=== PATIENT | female | born 1940 | race Caucasian/White ===

== ENCOUNTER 2023-12-13 10:24 | Emergency (ER) | payer MEDICARE, SELFPAY ==
[2023-12-13 10:29] VITALS: BP 176/105
[2023-12-13 10:55] VITALS: BP 185/95
[2023-12-13 11:00] VITALS: BP 178/81
[2023-12-13 11:08] LABS: % Basophils 0.5 % (0-2); % Eosinophils 0.8 % (0-6); % Immature Granulocytes 0.3 % (0-0.5); % Lymphocytes 19.2 % (20.5-51.1); % Monocytes 7.6 % (1.7-9.3); % Neutrophils 71.6 % (42.2-75.2); Absolute Eosinophils 0.1 10^3/uL (0-0.7); Absolute Lymphocytes 1.4 10^3/uL (1.2-3.4); Absolute Monocytes 0.6 10^3/uL (0.1-0.6); Absolute Neutrophils 5.4 10^3/uL (1.4-6.5); Hematocrit 41.2 % (37.0-47.0); Hemoglobin 13.9 g/dL (12.0-16.0); Mean Corp Hgb Conc. 33.7 g/dL (33.0-37.0); Mean Corpuscular Hgb 32.6 pg (27.0-31.0); Mean Corpuscular Volume 96.7 fL (81.0-99.0); Mean Platelet Volume 11.8 fL (7.4-10.4); Nucleated Red Blood Cells % 0 %; Platelet Count 195 10^3/uL (130-400); Red Blood Cell Count 4.26 10^6/uL (4.20-5.40); Red Cell Dist. Width 11.9 % (11.5-14.5); White Blood Cell Count 7.5 10^3/uL (4.8-10.8)
[2023-12-13 11:33] LABS: ALT (SGPT) 19 U/L (0-35); AST (SGOT) 33 U/L (14-36); Albumin 4.5 g/dl (3.5-5.0); Alkaline Phosphatase 56 U/L (38-126); Blood Urea Nitrogen 24 mg/dl (7-17); Calcium 10.1 mg/dl (8.4-10.2); Carbon Dioxide 26 mmol/L (22-30); Chloride 103 mmol/L (98-107); Glucose 110 mg/dl (70-99); Potassium 4.2 mmol/L (3.5-5.1); Sodium 138 mmol/L (135-145); Total Bilirubin 0.6 mg/dl (0.2-1.3); Total Protein 7.1 g/dl (6.3-8.2); eGFR > 60.00
[2023-12-13 11:48] LABS: Urine Albumin Negative (Neg - Trace); Urine Bilirubin Negative (Negative); Urine Character Clear (Clear); Urine Color Yellow; Urine Glucose Negative (Negative); Urine Ketone Negative (Negative); Urine Leukocyte 2+ (Negative); Urine Nitrite Negative (Negative); Urine Occult Blood 1+ (Negative); Urine Urobilinogen Negative (Neg - 1+)
--- NOTE | 2023-12-13 11:53 | ED.GENMED ---
History of Present Illness
General
Chief Complaint: Weakness
Source: patient
Exam Limitations: none
Time Seen by Provider: 12/13/23 10:47
Nursing documentation reviewed up to this point in time: agreed with
Travel History
Have you had any contact with someone who has COVID-19?: No
Do you have any symptoms of coronavirus? Fever > 100 degrees, chills, cough, shortness of breath, sore throat, loss of taste or smell, muscle aches, or headache?: No
History of Present Illness
History of Present Illness:
83-year-old female past with history of hypertension presenting to the emergency department today with concerns of weakness fatigue over the past 2 days claims that she has had a lot of stress in her personal life recently but typically does not
have significant fatigue like this regularly. Denies any specific chest pain nausea vomiting recent illness or fevers. She typically is very active at baseline
Past History
Past History
ED Past Medical History: HTN, Hypothyroidism and Other (Previous urosepsis,)
ED Past Surgical History: , Gynecological (Hysterectomy) and Other (hernioraphy)
Social History
Tobacco: Non-smoker
Alcohol: Occasional
Drug: None
Personal:
Living: with family
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
Family History
Family History: Hypertension
Review of Systems
Review of Systems
Allergies reviewed?: Yes
All Other Systems: ROS reviewed and negative except as documented in HPI and ROS
Phy Exam
Physical Exam
Physical Exam:
GENERAL: Alert , in no apparent distress
EYE: pupils equal and reactive
NECK: Supple, no significant adenopathy.
ENT: o/p clr, mmm.
CARDIAC: Regular rate and rhythm .
LUNGS: Clear breath sounds bilaterally, no acute respiratory distress, no wheezes/rales/rhonchi
ABDOMEN: Soft, without focal tenderness, no r/g, no cvat
NEUROLOGICAL: Alert and oriented, no focal neuro deficits
SKIN: Warm and dry, skin intact.
MUSCULOSKELETAL: No edema, well perfused.
PSYCH: Normal and appropriate interaction.
Course
Orders/Labs/Results
Orders:
Orders
12/13/23 10:51
EKG [Electrocardiogram (*1)] Urgent
Reason for Study: Fatigue / Weakness
EKG- Treatment ONCE
12/13/23 11:02
Complete Blood Count/With Diff Urgent
Comprehensive Metabolic Panel Urgent
TSH Reflex To Free T4 Urgent
12/13/23 11:30
Urinalysis Reflex To Culture Urgent
Date Specimen was Collected: 12/13/23
Time Specimen was Collected: 11:28
Urine Microscopic Reflex Cult Urgent
Urine Culture Urgent
AIDEE Source: U
Specimen Description:
Date Specimen was Collected: 12/13/23
Time Specimen was Collected: 11:28
12/13/23 11:55
0.9% Sodium Chloride 500 ml [Nss] 500 ml IV BOLUS
12/13/23 12:17
Cephalexin Monohydrate [Keflex] 500 mg PO NOW STA
Abnormal Lab Results
12/13/23 12/13/23
11:02 11:30
MCH 32.6 H pg
(27.0-31.0)
MPV 11.8 H fL
(7.4-10.4)
Lymphocytes % 19.2 L %
(20.5-51.1)
BUN 24 H mg/dl
(7-17)
Glucose 110 H mg/dl
(70-99)
Ur Occult Blood Reflex 1+ A
(Negative)
Leukocyte Esterase Rfl 2+ A
(Negative)
Urine RBC 3-6 A /HPF
(0-2)
Urine WBC (Reflex) 30-40 A /HPF
(0-5)
Urine Bacteria (Reflex) Few A
(Negative)
12/13/23 11:02
12/13/23 11:02
Vital Signs
Initial and Last Documented VS:
Initial Vital Signs
Temp Pulse Resp BP Pulse Ox
98.5 F 72 16 176/105 98
12/13/23 10:29 12/13/23 10:29 12/13/23 10:29 12/13/23 10:29 12/13/23 10:29
Last Documented Vital Signs
Temp Pulse Resp BP Pulse Ox
98.5 F 58 17 178/81 100
12/13/23 10:29 12/13/23 11:00 12/13/23 11:00 12/13/23 11:00 12/13/23 11:00
MDM/Problems Addressed
MDM/Problems Addressed:
83-year-old female presenting to the emergency department today with concerns of fatigue lightheadedness when standing over the past 24 hours or so. Claims that she has had a lot of stress recently. On arrival here vital signs are normal normal
neurologic evaluation no emergent findings on physical exam. Labs showing elevated BUN to creatinine ratio patient was given fluids that she may be somewhat dehydrated. Otherwise her urinalysis potentially consistent with UTI. She claims that her
urine has been cloudy recently. Patient was started on Keflex and culture sent. Otherwise doing well here no emergent findings patient stable for outpatient management of likely mild dehydration and cystitis. Return precautions given.
*Critical Care Note
Total Time (30-74mins, 75-104mins- exclusive of procedures): Not Applicable
ED Attending Note
-
Portions of this chart may have been created with voice recognition software.� Occasional wrong word or��sound alike� substitutions may have occurred due to the inherent limitations of voice recognition software.
Discharge Plan
Departure
Patient Disposition: Home (Routine Discharge)
Date of Disposition: 12/13/23
Time of Disposition: 12:45
Patient with high blood pressure during this ER visit?: Yes
Condition: Good
Covid-19: Not Applicable
Discharge Problem:
Acute UTI, Mild dehydration
Instructions: Urinary Tract Infection, Adult ED, BLOOD PRESSURE
Prescriptions:
New
cephalexin 500 mg capsule
500 mg PO BID 7 Days Qty: 14 0RF
No Action
hydrochlorothiazide 12.5 MG capsule
12.5 mg PO DAILY
ramipril 10 MG capsule
20 mg PO DAILY
Vitamin D
1 tab PO DAILY
levothyroxine [Levoxyl] 50 MCG tablet
50 mcg PO DAILY
prednisone 20 mg tablet
20 mg PO DAILY Qty: 5 0RF
epinephrine [EpiPen] 0.3 mg/0.3 mL auto-injector
0.3 mg IM .STAT PRN (Reason: anaphylaxis) Qty: 1 0RF
Referrals:
Josh Gutierrez MD [Family Provider] -
Activity Restrictions/Additional Instructions:
You came to the emergency department today with concerns of weakness and fatigue over the last 2 days. Here you are found to be somewhat dehydrated and were given fluids. Additionally you may have a UTI and you were started on Keflex. Please take
this medication twice daily for the next 7 days. Please have close with the primary care doctor. Return to the emergency department for any worsening, new or concerning symptoms. Additionally you had a somewhat elevated blood pressure here today.
Please keep an eye on this and follow-up closely with the primary care if your blood pressure is remaining elevated.
Interventions
Interventions:
*ED COVID-19 Vaccine History Last Done: 12/13/23 10:26
Discharge Date and Time
Print Language: MALTESE
[2023-12-13 11:57] LABS: Urine Bacteria Few (Negative); Urine White Cell 30-40 /HPF (0-5)
[2023-12-13 12:02] LABS: TSH Reflex To Free T4 1.31 uIU/ml (0.47-4.68)
[2023-12-13] MEDS: KEFLEX 500 MG PO (12:38)
[2023-12-13] MEDS: NSS 500 IV (12:38)
== END 2023-12-13 13:57 | disposition home or self-care (01) ==
LOC: EMR 10:24
PROVIDERS: Physician Assistant; EMERGENCY PHYSICIAN Emergency Medicine; FAMILY PHYSICIAN Family Medicine
DX: N39.0 Urinary tract infection, site not specified (principal); E86.0 Dehydration; I10 Essential (primary) hypertension; E03.9 Hypothyroidism, unspecified; Z82.49 Family history of ischemic heart disease and other diseases of the circulatory system; Z90.710 Acquired absence of both cervix and uterus
CPT/HCPCS: 99283; 96360; 80053; 81003; 81015; 84443; 85025; 87086; 93005

== ENCOUNTER 2024-07-30 18:17 | Inpatient (IN) | payer MEDICARE, SELFPAY ==
[2024-07-30] VITALS (28 sets, daily range): BP systolic 85–141; BP diastolic 51–95; BMI 18.3; BMI 19.8
[2024-07-30 14:03] LABS: % Basophils 0.4 % (0-2); % Eosinophils 1.2 % (0-6); % Immature Granulocytes 0.1 % (0-0.5); % Lymphocytes 34.4 % (20.5-51.1); % Neutrophils 55.9 % (42.2-75.2); Absolute Eosinophils 0.1 10^3/uL (0-0.7); Absolute Lymphocytes 2.6 10^3/uL (1.2-3.4); Absolute Monocytes 0.6 10^3/uL (0.1-0.6); Absolute Neutrophils 4.3 10^3/uL (1.4-6.5); Hematocrit 40.5 % (37.0-47.0); Hemoglobin 13.9 g/dL (12.0-16.0); Mean Corp Hgb Conc. 34.3 g/dL (33.0-37.0); Mean Corpuscular Hgb 32.3 pg (27.0-31.0); Mean Platelet Volume 11.1 fL (7.4-10.4); Nucleated Red Blood Cells % 0 %; Platelet Count 235 10^3/uL (130-400); Red Blood Cell Count 4.31 10^6/uL (4.20-5.40); Red Cell Dist. Width 11.7 % (11.5-14.5); White Blood Cell Count 7.6 10^3/uL (4.8-10.8)
[2024-07-30 14:14] LABS: ALT (SGPT) 14 U/L (0-35); AST (SGOT) 26 U/L (14-36); Albumin 4.3 g/dl (3.5-5.0); Alkaline Phosphatase 59 U/L (38-126); Blood Urea Nitrogen 35 mg/dl (7-17); Calcium 9.6 mg/dl (8.4-10.2); Carbon Dioxide 29 mmol/L (22-30); Chloride 101 mmol/L (98-107); Glucose 172 mg/dl (70-99); Potassium 4.4 mmol/L (3.5-5.1); Sodium 139 mmol/L (135-145); Total Bilirubin 0.3 mg/dl (0.2-1.3); Total Protein 7.1 g/dl (6.3-8.2); eGFR 49.86
--- NOTE | 2024-07-30 14:54 | EDRN ---
currently still awaiting for a provider to see the pt
[2024-07-30 15:34] LABS: Magnesium 1.6 mg/dl (1.6-2.3)
--- NOTE | 2024-07-30 17:19 | ED.GENMED ---
History of Present Illness
<Lila Swartz DO - Last Filed: 07/30/24 17:24>
General
Chief Complaint: Heart Rate Problem
Time Seen by Provider: 07/30/24 15:21
<Tonio Ortega PA-C - Last Filed: 07/30/24 18:01>
History of Present Illness
History of Present Illness:
Patient is an 84-year-old female with past medical history of hypertension and hypothyroidism here today for evaluation of sudden onset of an irregular heart rhythm and palpitations that began at approximately 1 PM today while at home. Patient was
not exerting herself at the time of symptom onset. She feels she is currently in atrial fibrillation. 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 She notes no chest pain or difficulty breathing. No dizziness. No syncope.
Past History
<DO Raven Aguilar Last Filed: 07/30/24 17:24>
Past History
ED Past Medical History: HTN, Hypothyroidism and Other (Previous urosepsis,)
ED Past Surgical History: , Gynecological (Hysterectomy) and Other (hernioraphy)
Social History
Tobacco: Non-smoker
Alcohol: Occasional
Drug: None
Personal:
Living: with family
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
Family History
Family History: Hypertension
Review of Systems
<Tonio Ortega PA-C - Last Filed: 07/30/24 18:01>
Review of Systems
All Other Systems: ROS reviewed and negative except as documented in HPI and ROS
Phy Exam
<BRANDON Cheng Last Filed: 07/30/24 18:01>
Physical Exam
Physical Exam:
GENERAL: Alert , in no apparent distress
EYE: pupils equal and reactive
NECK: Supple, no significant adenopathy.
ENT: o/p clr, mmm.
CARDIAC: Tachycardic rate and irregular rhythm
LUNGS: Clear breath sounds bilaterally, no acute respiratory distress, no wheezes/rales/rhonchi
NEUROLOGICAL: Alert and oriented, no focal neuro deficits
SKIN: Warm and dry, skin intact.
MUSCULOSKELETAL: No edema, well perfused.
PSYCH: Normal and appropriate interaction.
Course
<Lila Swartz, DO - Last Filed: 07/30/24 17:24>
Orders/Labs/Results
Orders:
Orders
07/30/24 13:42
Electrocardiogram (*1) Urgent
Reason for Study: Chest Pain
EKG- Treatment ONCE
07/30/24 13:53
Complete Blood Count/With Diff Urgent
Comprehensive Metabolic Panel Urgent
Magnesium Urgent
Comment: ADD ON
07/30/24 14:16
Add On- LAB Urgent
Tests Added?: Magnesium
07/30/24 16:56
Propofol [Diprivan] 20 ml .ROUTE .STK-MED
07/30/24 17:14
EKG [Electrocardiogram (*1)] Urgent
Reason for Study: Other
Other Reason for Exam: post cardioversion
EKG- Treatment ONCE
07/30/24 17:34
Apixaban [Eliquis] 2.5 mg PO BID ONE
07/30/24 17:45
Diltiazem 125 mg/125 ml Nss [Cardizem] 125 mg in 125 ml IV PER PROTOCOL
Continuous dose without titration in mg/hr:: 5
Additional Titration Instructions:: Do not titrate. Rate change by provider order only.
Abnormal Lab Results
07/30/24
13:53
MCH 32.3 H pg
(27.0-31.0)
MPV 11.1 H fL
(7.4-10.4)
BUN 35 H mg/dl
(7-17)
Creatinine 1.1 H mg/dL
(0.6-1.0)
Glucose 172 H mg/dl
(70-99)
07/30/24 13:53
07/30/24 13:53
Vital Signs
Initial and Last Documented VS:
Initial Vital Signs
Temp Pulse Resp BP Pulse Ox
97.6 F 97 18 133/95 98
07/30/24 13:47 07/30/24 13:47 07/30/24 13:47 07/30/24 13:47 07/30/24 13:47
Last Documented Vital Signs
Temp Pulse Resp BP Pulse Ox
97.6 F 94 20 122/77 100
07/30/24 17:20 07/30/24 17:45 07/30/24 17:45 07/30/24 17:45 07/30/24 17:45
<Tonio Ortega PA-C - Last Filed: 07/30/24 18:01>
Orders/Labs/Results
Orders:
Orders
07/30/24 13:42
Electrocardiogram (*1) Urgent
Reason for Study: Chest Pain
EKG- Treatment ONCE
07/30/24 13:53
Complete Blood Count/With Diff Urgent
Comprehensive Metabolic Panel Urgent
Magnesium Urgent
Comment: ADD ON
07/30/24 14:16
Add On- LAB Urgent
Tests Added?: Magnesium
07/30/24 16:56
Propofol [Diprivan] 20 ml .ROUTE .STK-MED
07/30/24 17:14
EKG [Electrocardiogram (*1)] Urgent
Reason for Study: Other
Other Reason for Exam: post cardioversion
EKG- Treatment ONCE
07/30/24 17:34
Apixaban [Eliquis] 2.5 mg PO BID ONE
07/30/24 17:45
Diltiazem 125 mg/125 ml Nss [Cardizem] 125 mg in 125 ml IV PER PROTOCOL
Continuous dose without titration in mg/hr:: 5
Additional Titration Instructions:: Do not titrate. Rate change by provider order only.
Abnormal Lab Results
07/30/24
13:53
MCH 32.3 H pg
(27.0-31.0)
MPV 11.1 H fL
(7.4-10.4)
BUN 35 H mg/dl
(7-17)
Creatinine 1.1 H mg/dL
(0.6-1.0)
Glucose 172 H mg/dl
(70-99)
07/30/24 13:53
07/30/24 13:53
Vital Signs
Initial and Last Documented VS:
Initial Vital Signs
Temp Pulse Resp BP Pulse Ox
97.6 F 97 18 133/95 98
07/30/24 13:47 07/30/24 13:47 07/30/24 13:47 07/30/24 13:47 07/30/24 13:47
Last Documented Vital Signs
Temp Pulse Resp BP Pulse Ox
97.6 F 94 20 122/77 100
07/30/24 17:20 07/30/24 17:45 07/30/24 17:45 07/30/24 17:45 07/30/24 17:45
Procedures
<Lila Swartz DO - Last Filed: 07/30/24 17:24>
Cardioversion
Indication:: Afib
Performed by:: Lila Swartz DO
Synchronized?: Yes
Energy Used: 200 joules
Number of attempts: x 3 (2x at 200, 1 x at 250
Successful?: No
ASA Risk Score: Class II
Any reaction or bad outcome to prior sedation/anesthesia?: No history of a reaction
Sedation level to be attained: moderate
Chart and allergies reviewed: Yes
Patient reassessed prior to sedation: Yes
Time out completed at (validating right patient & procedure): 15:05
History of difficult intubation: No
Airway free of obstruction: Yes
Patient has a gag reflex: Yes
Patient is able to open mouth: Yes
Patient has no dentures: Yes
Patient has no loose teeth: Yes
Medication administered by Provider during Moderate Sedation: IV Propofol (mg)
Total dose administered: 60
Time drug administered: 15:07
Start Time: 15:07
Stop Time: 15:20
<Tonio Ortega PA-C - Last Filed: 07/30/24 18:01>
MDM/Problems Addressed
Differential Diagnosis Includes:
Patient is an 84-year-old female with past medical history of hypertension and hypothyroidism here today for evaluation of sudden onset of an irregular heart rhythm and palpitations that began at approximately 1 PM today while at home. Patient
well-appearing. Vitals remarkable for an elevated heart rate. EKG was obtained which reveals evidence of atrial fibrillation with rapid ventricular response. Discussed treatment options with patient. Patient refusing Cardizem. She is requesting
cardioversion. Case was discussed with cardiology attending, Dr. Lopes, who is in agreement with cardioversion. Given patient's stroke risk he also recommends Eliquis and metoprolol. An attempt was made at cardioversion x 3 which was
unsuccessful. Case was rediscussed with cardiology who recommends diltizaem drip and admission. Cardiology will evaluate patient tomorrow morning. Case was discussed with hospitalist attending, Madhu Shields, who accepts patient for
admission at this time.
<Lila Swartz DO - Last Filed: 07/30/24 17:24>
*Critical Care Note
Total Time (30-74mins, 75-104mins- exclusive of procedures): 36
comment:
The high probability of a clinically significant, sudden or life threatening deterioration of the cardiovascular (A-fib with RVR) system(s) required my full and direct attention, intervention and personal management. The aggregate critical care time
was 36 minutes. This time is in addition to time spent performing reported procedures but includes the following:
[x] Data Review and interpretation
[x] Patient assessment and monitoring of vital signs
[x] Documentation
[x] Medication orders and management
ED Attending Note
<Lila Swartz, DO - Last Filed: 07/30/24 17:24>
ED Attending Note
Patient seen and examined by attending physician: Yes
I performed the substantive portion of visit, reviewed & personally made and approve the management plan that is documented in note by myself or TIERRA.: Yes
I performed a history and physical exam of patient and discussed management with resident, I reviewed resident's note and agree with documented findings and plan of care.: Yes
ED Attending Note:
Patient seen and evaluated at bedside, 84-year-old female presenting for new onset atrial fibrillation. 1 hour prior to arrival patient felt herself going to the rhythm, palpitations. Denies any history of A-fib in the past, does note some family
history. Denies any chest pain. [place] fine yesterday, and is sure that the abnormal sensation occurred an hour prior to arrival. Denies any fever or recent illness. Vital signs are normal.
EKG obtained on arrival, confirms new onset atrial fibrillation. Patient seen and evaluated bedside, no acute distress or discomfort with unremarkable cardiac and pulmonary exam with the exception of irregularly irregular rhythm, tachycardia. TIERRA
had discussed patient's case with cardiology, agree with cardioversion, which patient is preferring. Patient declined IV rate controlling medications. Patient is a candidate for cardioversion given acute onset of symptoms. Patient consented and
cardioversion completed, unsuccessful x 3. This reason we will start patient on diltiazem drip and admit for A-fib with RVR, new onset. Will also administer Eliquis
-
Portions of this chart may have been created with voice recognition software.� Occasional wrong word or��sound alike� substitutions may have occurred due to the inherent limitations of voice recognition software.
Discharge Plan
Departure
Patient Disposition: Admit
Date of Disposition: 07/30/24
Time of Disposition: 18:00
Admit to: Telemetry
Admit to doctor: Madhu Johnston
Presentation/result/management discussed w/ accepting MD/DO: Hospitalist
Patient with high blood pressure during this ER visit?: No
Condition: Fair
Covid-19: Not Applicable
Discharge Problem:
Atrial fibrillation with rapid ventricular response, Atrial fibrillation status post cardioversion
Prescriptions:
No Action
hydrochlorothiazide 12.5 MG capsule
12.5 mg PO DAILY
ramipril 10 MG capsule
20 mg PO DAILY
Vitamin D
1 tab PO DAILY
levothyroxine [Levoxyl] 50 MCG tablet
50 mcg PO DAILY
epinephrine [EpiPen] 0.3 mg/0.3 mL auto-injector
0.3 mg IM .STAT PRN (Reason: anaphylaxis) Qty: 1 0RF
Referrals:
Josh Gutierrez MD [Family Provider] -
Interventions
Interventions:
*Risk Screen - Suicide Last Done: 07/30/24 13:47
*General Assessment Last Done: 07/30/24 13:47
*Neglect/Abuse Screening Last Done: 07/30/24 13:47
ED- Fall Risk Assessment Last Done: 07/30/24 14:13
*ED COVID-19 Vaccine History Last Done: 07/30/24 14:13
ED- Cardiac Assessment Last Done: 07/30/24 14:13
ED- Pulmonary Assessment Last Done: 07/30/24 14:13
Discharge Date and Time
Print Language: AMHARIC
[2024-07-30] MEDS: ELIQUIS 2.5 MG PO (17:44)
[2024-07-30] MEDS: CARDIZEM 125 IV (17:45)
--- NOTE | 2024-07-30 17:49 | EDRN ---
cardizem gtt initiated at 5mg/hour
--- NOTE | 2024-07-30 18:02 | EDRN ---
the pts HR is in the 80's with cardizem gtt at 5mg/hour
--- NOTE | 2024-07-30 18:12 | HPS.HSE ---
Family Physician
-
Family Physician: Josh Gutierrez
Chief Complaint
-
Feeling unwell
History of Present Illness
Patient is 83-year-old female with past medical history hypothyroidism, essential hypertension came to ER after patient started feeling unwell. 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
in A-fib. In ER this was confirmed on EKG. Patient was having rapid ventricular rate and ER physician attempted cardioversion x 3 which was unsuccessful. Patient was placed on Cardizem drip and cardiology was consulted for further help.
During my visit patient heart rate is controlled in ED 200 range. Patient denies of any ongoing chest pain/shortness of breath/dizziness/palpitation.
Patient denies of having previous history of any cardiac issues heart failure or CAD.
Medical History
Past Medical History
Past Medical History: Reports HTN and Hypercholesterolemia
Past Surgical History: Reports None
Social History
Tobacco: Other (5 yr smoking - remote h/o)
Alcohol: None
Drug: None
Living: With Family
Family History
Family History: Not pertinent
Allergies / Home Medications
Allergies reflects when Allergies were last updated in [facility].
Home Medications with original date entered in [facility]
Allergy/Medication List:
Allergies
Allergy/AdvReac Type Severity Reaction Status Date / Time
NSAIDS (Non-Steroidal Allergy Severe Swelling Verified 07/30/24 13:46
Anti-Inflamma
Sulfa (Sulfonamide Allergy Rash Verified 07/30/24 13:46
Antibiotics)
Home Medications
Vitamin D 1 tab PO DAILY 06/04/17
hydrochlorothiazide 12.5 mg capsule 12.5 mg PO DAILY 06/04/17
levothyroxine 50 mcg tablet (Levoxyl) 50 mcg PO DAILY 06/04/17
ramipril 10 mg capsule 20 mg PO DAILY 06/04/17
epinephrine 0.3 mg/0.3 mL injection, auto-injector (EpiPen) 0.3 mg (0.3 mL) IM .STAT PRN anaphylaxis #1 ea 03/31/23
Review of Systems
-
A 12 point ROS was completed and negative except as noted: Yes
Physical Exam
Vital Signs
Vital Signs
Temp Pulse Resp BP Pulse Ox
97.6 F 96 12 139/68 95
07/30/24 17:20 07/30/24 18:00 07/30/24 18:00 07/30/24 18:00 07/30/24 18:00
Physical Exam
General: Well Developed, Well Nourished and No Apparent Distress
HEENT: NormoCephalic, Moist mucous membranes and Atraumatic
Respiratory: Clear
Cardiac: S1/S2 and Irregular Rhythm; No Murmur or Rub
GI: Soft, Non Tender, Non Distended and Normal Bowel Sounds; No Organomegaly
Rectal: Deferred by Provider
Musculoskeletal: No Clubbing, No Cyanosis and No Edema
Skin: No Rash
Neuro: Nonfocal/grossly intact
Laboratory Results
-
07/30/24 13:53
07/30/24 13:53
Laboratory Results
Total Bilirubin 0.3 mg/dl (0.2-1.3) 07/30/24 13:53
AST 26 U/L (14-36) 07/30/24 13:53
ALT 14 U/L (0-35) 07/30/24 13:53
Alkaline Phosphatase 59 U/L (38-126) 07/30/24 13:53
Impression/Plan
-
1. Paroxysmal atrial fibrillation with rapid ventricular rate
-Unsuccessful cardioversion attempts x3
-Patient currently on Cardizem drip at rate of 5 mg/h
-Low CHADS2 score, anticoagulation per cardiology
-Cardiology involved in care
-Admit patient to IVU for now
2. Essential hypertension
-Hold ramipril/hydrochlorothiazide to maximize rate control medication
3. Hypothyroidism
-Continue levothyroxine
-Check TSH and free T4 in the morning
DVT PPX - lovenox
Full code
--- NOTE | 2024-07-30 21:25 | PTCARENOTE ---
Received patient from ED @ 1954. Patient awake and alert, oriented x3. Able to ambulate to bathroom. No c/o of chest discomfort, palpitations at this time. BP 128/83, A-Fib 60s-70s, 98% on room air. Cardizem gtt running through right AC @ 5 mg/hr.
Discussed plan of care for evening. Patient expressed being very tired. Call [facility] within reach.
[2024-07-31 03:32] VITALS: BP 120/67
[2024-07-31 04:03] LABS: Hematocrit 36.2 % (37.0-47.0); Hemoglobin 12.3 g/dL (12.0-16.0); Mean Corpuscular Volume 94.3 fL (81.0-99.0); Mean Platelet Volume 11.6 fL (7.4-10.4); Platelet Count 229 10^3/uL (130-400); Red Blood Cell Count 3.84 10^6/uL (4.20-5.40); Red Cell Dist. Width 11.9 % (11.5-14.5); White Blood Cell Count 7.4 10^3/uL (4.8-10.8)
[2024-07-31 04:15] LABS: Blood Urea Nitrogen 23 mg/dl (7-17); Calcium 8.7 mg/dl (8.4-10.2); Carbon Dioxide 27 mmol/L (22-30); Chloride 104 mmol/L (98-107); Estimated Creatinine Clearance 34 ml/min; Glucose 84 mg/dl (70-99); Potassium 3.8 mmol/L (3.5-5.1); Sodium 139 mmol/L (135-145); eGFR > 60.00
[2024-07-31] MEDS: SYNTHROID 50 MCG PO (06:44)
[2024-07-31 07:29] VITALS: BP 120/67
--- NOTE | 2024-07-31 08:09 | CON.CAR ---
Addendum entered and electronically signed by Vick Calle MD 07/31/24 09:55:
I saw and examined the patient.
The Video Poker Floorman's note was reviewed and I agree with the note.
Comment:
GEN: No distress, awake, Ox3
HEENT: supple, anicteric, mmm
LUNGS: CTA, no wheezes/rales
CV: Reg, S1/S2, 1/6 syst LSB, no gallop
ABD: soft, BS+, NT/ND
EXT: No edema
NEURO: Gross non-focal
SKIN: No rash
Plan:
84-year-old female with hypertension hypothyroidism who presents with new onset atrial fibrillation. Her symptoms began yesterday and she had a failed cardioversion x 3 in the emergency room. She was placed on a Cardizem drip and then
spontaneously converted into sinus rhythm. She currently feels well with no chest pains or shortness of breath.
Check TSH. Continue Synthroid.
Stop IV Cardizem and start oral Cardizem 180 mg daily. Will stop hydrochlorothiazide and ramipril.
[id number] score is 4. We will start Eliquis 2.5 mg p.o. twice daily.
Will arrange for outpatient echocardiogram and she can likely be discharged today.
Original Note:
Consultation
Consultation Request
Date/Time Consultation Requested: 07/30/24 at 1801
Date/Time Consultation Performed: 07/31/24 at 0810
Requesting Provider: Dr. Shamir Meredith
Performing Provider: Dr. Calle
Reason for Consultation: Newly diagnosed Afib with RVR
Medical History
-
History of Present Illness:
Patient came to [facility] last evening with new Afib and cardiology is now consulted. 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 Patient felt abnormal chest sensation yesterday, not palpitations, but
described as chills and quivering in her chest that did not resolve so she came to [facility] and was found to be in Afib with RVR which is what she suspected as well. No known h/o Afib and she had never felt this way before. Patient was agreeable to an
attempt at CV in the ER, but CV unsuccessful x3 and so patient admitted with [facility] gtt. Patient spontaneously converted to SR at about 2230 last night and remains SR now. No longer feeling chills or quivering in chest. Patient has not seen
cardiology in the past.
PMH:
HTN
Hypothyroid
Past Medical History
Past Medical History: Other (in HPI)
Past Surgical History: and Gynecological (hysterectomy)
Social History
Tobacco: Former Smoker (smoked in college)
Alcohol: Occasional (monthly or less)
Drug: None
Personal:
Living: Alone
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
Family History
Family History: Hypertension
Allergies / Home Medications
Allergy/AdvReac Type Severity Reaction Status Date / Time
NSAIDS (Non-Steroidal Allergy Severe Swelling Verified 07/30/24 13:46
Anti-Inflamma
Sulfa (Sulfonamide Allergy Rash Verified 07/30/24 13:46
Antibiotics)
�Medication �Instructions �Recorded �Confirmed �Type
Vitamin D 1 tab PO DAILY 06/04/17 07/30/24 History
hydrochlorothiazide 12.5 mg capsule 12.5 mg PO DAILY 06/04/17 07/30/24 History
levothyroxine 50 mcg tablet 50 mcg PO DAILY 06/04/17 07/30/24 History
(Levoxyl)
ramipril 10 mg capsule 20 mg PO DAILY 06/04/17 07/30/24 History
epinephrine 0.3 mg/0.3 mL 0.3 mg (0.3 mL) IM .STAT PRN 03/31/23 07/30/24 Rx
injection, auto-injector (EpiPen) anaphylaxis #1 ea
Review of Systems
-
History Source: Patient
All other systems: Negative unless noted
Physical Exam
Vital Signs
Temp Pulse Resp BP Pulse Ox
98.3 F 60 20 120/67 100
07/31/24 07:27 07/31/24 04:15 07/31/24 07:27 07/31/24 03:32 07/31/24 07:27
GEN: NAD. AAOx3
HEENT: EOMI, MMM
LUNGS: RA. CTA B/L, no wheezes or rales
CV: Reg, S1/S2, no murmur
ABD: soft, BS+, NT, ND
EXT: No clubbing, cyanosis, lesions or edema B/L
NEURO: Gross non-focal
SKIN: Warm, dry and pink. No rash
Lab Results
07/31/24 03:30
07/31/24 03:30
Impression / Plan
-
PCP: Dr. Gutierrez
Cardiology: None prior to admission, seen initially by Dr. Calle
Impression:
Afib with RVR
Newly diagnosed paroxysmal Afib
unsuccessful CV x3 (200 x2 and 250 x1) [facility] 07/30/24
spontaneously converted to SR on Cardizem gtt 07/30/24
New start to chronic Eliquis OAC
HTN
Hypothyroid
Plan:
-Patient came to [facility] last evening with new Afib and cardiology is now consulted. 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 Patient felt abnormal chest sensation yesterday, not palpitations,
but described as chills and quivering in her chest that did not resolve so she came to [facility] and was found to be in Afib with RVR which is what she suspected as well. No known h/o Afib and she had never felt this way before. Patient was agreeable to
an attempt at CV in the ER, but CV unsuccessful x3 and so patient admitted with Cardizem gtt. Patient spontaneously converted to SR at about 2230 last night and remains SR now. No longer feeling chills or quivering in chest. Patient has not seen
cardiology in the past.
-ECG reviewed by me looks like Afib. Repeat ECG for this AM has been ordered by me now that patient is back in SR. Tele reviewed by me looks like SR.
-Check echo as an outpatient
-Start Cardizem CD 180 mg daily.
-Outpatient doses of ramipril 20 mg daily and HCTZ 12.5 mg daily have been on hold since admission in favor of rate controlling meds. Patient is in favor of continuing to hold these meds to continue Cardizem CD.
-New to Eliquis 2.5 mg BID (age 84, wt 46 kg, Cr 0.9), ordered by me. Can use 30 day free coupon.
-Added TSH and reflex free T4 to labs for this AM.
-D/C to home later today and will arrange cardiology follow up
[2024-07-31] MEDS: CARDIZEM CD 180 MG PO (09:23)
[2024-07-31] MEDS: ELIQUIS 2.5 MG PO (09:24)
--- NOTE | 2024-07-31 10:02 | W.PN.HOSP.TC ---
Addendum entered and electronically signed by Shamir Meredith MD 08/09/24 13:41:
Add on to diagnosis list :
Underweight
Original Note:
Today's Communication/Plan
-
Discharge home if TSH normal
Assessment / Plan
Assessment / Plan
1. Paroxysmal atrial fibrillation with rapid ventricular rate
-Unsuccessful cardioversion attempts x3
-Patient converted to normal sinus rhythm spontaneously on Cardizem drip yesterday
-started on Eliquis therapy 2.5mg BID
-Discussed with cardiology, patient to be discharged on diltiazem. Home dose of ramipril and/hydrochlorothiazide to be held
-Patient will be contacted by cardiology office on Friday to have echocardiogram planned
2. Essential hypertension
-Discontinue home blood pressure medication as requiring diltiazem for rate control
3. Hypothyroidism
-Continue levothyroxine
-Check TSH and free T4 in the morning
DVT PPX - eliquis
More than 30 minutes spent in discharge including
Final examination of the patient
Summarizing hospital stay
Instructions for continuing care to all relevant caregivers
Preparation of discharge records, prescriptions, and referral forms
Total time spent (in minutes): 39 mins
Anticipated Discharge: Today
Subjective/Interval History
-
Date of Service: July 31, 2024
Patient converted to normal sinus rhythm simultaneously at 2100 yesterday
Denies any chest pains/palpitations/dizziness overnight
No other reported problems
Objective Data
-
Labs:
Laboratory Results
07/31/24
03:30
WBC 7.4
Hgb 12.3
Hct 36.2 L
Plt Count 229
Sodium 139
Potassium 3.8
Chloride 104
Carbon Dioxide 27
BUN 23 H
Creatinine 0.9
Glucose 84
Calcium 8.7
Vital Signs:
Vital Signs
Temp Pulse Resp BP Pulse Ox
98.3 F 70 20 120/67 100
07/31/24 07:27 07/31/24 09:30 07/31/24 07:27 07/31/24 09:23 07/31/24 08:40
Review of Systems
-
Respiratory: Reports No Symptoms
Cardiac: Reports No Symptoms
Abdomen/GI: Reports No Symptoms
Physical Exam
-
General: No Apparent Distress and Comfortable
HEENT: Negative Oxygen
Respiratory: Clear to Auscultation
Cardiac: Regular Rhythm and S1/S2; Negative Murmur or Rub
GI: Soft, Nontender, Nondistended and Normal Bowel Sounds
Musculoskeletal: No Edema
Neuro: Awake, Alert, Oriented, No Motor Deficits and Nonfocal/Grossly Intact
Psych: Calm
[2024-07-31 10:09] LABS: TSH Reflex To Free T4 1.76 uIU/ml (0.47-4.68)
[2024-07-31 10:32] VITALS: BP 135/69
--- NOTE | 2024-08-01 15:55 | W.DCSUMMARY ---
Discharge Summary
Discharge Data
Date of Admission: 07/30/24
Date of Discharge: 07/31/24
-
Pending Results: No
Hospital Course
Discharging Physician : Dr Shamir Meredith
Disposition : To home
Primary care physician : Dr. Josh Gutierrez
Principal Discharge diagnosis :
Paroxysmal atrial fibrillation with rapid ventricular rate
Chronic Discharge diagnosis :
Essential hypertension
Hypothyroidism
Hospital Course :
Patient is a 84-year-old female with above-mentioned past medical history came to ER for new onset of not feeling well. Patient checked her pulse noted to be irregular and fast and felt to be in A-fib. In the ER this was confirmed with a EKG.
Patient was attempted to be cardioverted x3 in ER and was not successful. patient was started on IV Cardizem drip and cardiology was involved in care. Patient had spontaneous conversion to sinus rhythm later in the evening. Following day
cardiology recommended for patient to be discharged on regimen of diltiazem/Eliquis. Patient to follow-up with cardiology in office and plan to have an outpatient echocardiogram
Important imaging findings :
None
Procedure findings :
None
Discharge Plan
-
Patient Disposition: Home (Routine Discharge)
Discharge Diagnosis/Procedures: Paroxysmal atrial fibrillation, unsuccessful cardioversion in the ER 07/30/24, spontaneous conversion to sinus rhythm
Condition: Fair
Diet: Low Fat and Low Sodium
Activity: As tolerated
Driving Restrictions: No driving for 24 hours
Bathing Restrictions: None
Activity Restrictions/Additional Instructions:
Cardiology office will contact on Friday to plan echocardiogram.
Referrals:
Vick Calle MD [Active] - in two to three weeks (The cardiology office will call you on Friday to arrange for a follow up appt. [phone].)
Josh Gutierrez MD [Family Provider] - in one week
Additional Discharge Medication Instructions: -STOP taking ramipril and HCTZ for now in favor of taking Cardizem
-Start taking Cardizem CD (diltiazem) 180 mg once a day
-Start taking Eliquis 2.5 mg twice a day
Prescriptions:
New
diltiazem HCl 180 mg Capsule,Extended Release 24hr
180 mg PO DAILY Qty: 30 11RF
Eliquis 2.5 mg Tablet
2.5 mg PO BID Qty: 60 11RF
Continued
Vitamin D
1 tab PO DAILY
levothyroxine [Levoxyl] 50 MCG tablet
50 mcg PO DAILY
epinephrine [EpiPen] 0.3 mg/0.3 mL auto-injector
0.3 mg IM .STAT PRN (Reason: anaphylaxis) Qty: 1 0RF
Discontinued
hydrochlorothiazide 12.5 MG capsule
12.5 mg PO DAILY
ramipril 10 MG capsule
20 mg PO DAILY
Discharge Orders:
Discharge Patient (As Directed); Ordered 07/31/24
Ordered By: Shamir Meredith
Discharge Date and Time
Discharge Date/Time: 07/31/24 11:03
Print Language: DIVEHI
--- NOTE | 2024-08-03 09:56 | PN.CDI ---
CDI
- -
CDI:
Physician Documentation Request
Admit Date: 07/30/24 18:17
Dear Doctor Masoud,
Please review the following and provide your response in the progress notes.
Clinical Indicators:
Height: 5 ft
Weight: 97 lbs
BMI: 18.3
If possible, please provide an associated diagnosis related to the abnormal BMI, such as:
Underweight
Cachectic
Other (please specify)
Use of terms such as suspected, likely, concern for, or probable (associated with a specific diagnosis that is being evaluated, monitored, or treated as if it exists) are acceptable and can be coded in the inpatient setting, when documented at the
time of discharge.
Thank you,
Bony Mares RN
CDI Specialist
Please use your independent medical judgment in providing your response.
== END 2024-07-31 11:03 | disposition home or self-care (01) | DRG 309 ==
LOC: IVU 18:17
PROVIDERS: Emergency Medicine; ADMITTING PHYSICIAN Hospitalist; EMERGENCY PHYSICIAN Student in an Organized Health Care Education/Training Program; FAMILY PHYSICIAN Family Medicine; OTHER PHYSICIAN Internal Medicine Cardiovascular Disease
PROC: 5A2204Z Restoration of Cardiac Rhythm, Single (ICD-10-PCS; 2024-07-30)
DX: I48.0 Paroxysmal atrial fibrillation (principal); Z68.1 Body mass index [BMI] 19.9 or less, adult; I10 Essential (primary) hypertension; E03.9 Hypothyroidism, unspecified; R63.6 Underweight; E78.00 Pure hypercholesterolemia, unspecified; Z90.710 Acquired absence of both cervix and uterus; Z79.01 Long term (current) use of anticoagulants; Z79.890 Hormone replacement therapy; Z87.891 Personal history of nicotine dependence; Z88.6 Allergy status to analgesic agent; Z88.2 Allergy status to sulfonamides
CPT/HCPCS: 80048; 80053; 83735; 84443; 85025; 85027; 92960; 93005; 96365; 96366; 99152; 99291

== ENCOUNTER 2024-08-05 07:37 | Emergency (ER) | payer MEDICARE, SELFPAY ==
[2024-08-05 07:51] VITALS: BP 154/69
--- NOTE | 2024-08-05 08:43 | ED.MUSCINJ ---
HPI-Injury
General
Chief Complaint: Musculo-Skeletal Complaint
Source: patient
Exam Limitations: none
Time Seen by Provider: 08/05/24 08:10
History of Present Illness-Injury
Initial Injury comments:
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 She states she is nauseous and her arm feels weak because of his pain. She was here last week for new
onset A-fib with failed cardioversion attempts x 3 and was admitted. She converted after diltiazem drip. She was started on Eliquis. She was feeling well and resumed her normal activities. She is quite active and started swimming a couple days
ago. She was lifting several boxes yesterday but did not have any pain yesterday. This pain woke her up this morning. The pain is not pleuritic. She is not short of breath. No other complaints at this time
Past History
Past History
ED Past Medical History: HTN, Hypothyroidism and Other (Previous urosepsis,)
ED Past Surgical History: , Gynecological (Hysterectomy) and Other (hernioraphy)
Social History
Tobacco: Non-smoker
Alcohol: Occasional
Drug: None
Personal:
Living: with family
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
Family History
Family History: Hypertension
Phy Exam
Physical Exam
Physical Exam:
General: Well-appearing female no acute respiratory
HEENT: NC/AT
HEart: RRR, no murmurs
Lungs: CTA
Vascular: 2+ radial pulse left hand
Musculoskeletal exam: Decreased active and passive range of motion of the left shoulder. She is tender diffusely about the left shoulder.
Neurologic: Good sensation left hand
Injury Course
Orders/Labs/Results
Orders:
Orders
08/05/24 07:40
Electrocardiogram (*1) Urgent
Reason for Study: Other
Other Reason for Exam: left arm pain
EKG- Treatment ONCE
08/05/24 08:35
Diphenhydramine [Benadryl] 50 mg IV NOW STA
Hydrocortisone Sod Succinate [Solu-Cortef] 200 mg IV NOW STA
08/05/24 08:40
CT Chest Angio W/wo Iv Contras Urgent
Comment:
Reason For Exam: left upper chest and scapular discomfort
08/05/24 08:50
Complete Blood Count/With Diff Urgent
Comprehensive Metabolic Panel Urgent
Abnormal Lab Results
08/05/24
08:50
WBC 14.1 H 10^3/uL
(4.8-10.8)
RBC 3.92 L 10^6/uL
(4.20-5.40)
Hct 36.2 L %
(37.0-47.0)
MCH 31.9 H pg
(27.0-31.0)
MPV 11.2 H fL
(7.4-10.4)
Abs Immat Gran (auto) 0.1 H 10^3/uL
(0-0.05)
Absolute Neuts (auto) 11.4 H 10^3/uL
(1.4-6.5)
Absolute Monos (auto) 1.4 H 10^3/uL
(0.1-0.6)
Neutrophils % 80.5 H %
(42.2-75.2)
Lymphocytes % 8.6 L %
(20.5-51.1)
Monocytes % 9.9 H %
(1.7-9.3)
BUN 21 H mg/dl
(7-17)
Glucose 116 H mg/dl
(70-99)
08/05/24 08:50
08/05/24 08:50
MDM/Problems Addressed
Differential Diagnosis Includes:
Sudden onset severe left scapular shoulder and upper chest discomfort that radiates down the arm. Recent initiation of Eliquis secondary to new onset A-fib. Recent cardioversion attempts. Differential could include radiculopathy versus bursitis
versus dissection versus less likely ischemic limb given good pulses and anticoagulated state
Will check labs. Patient had a potential reaction to IV dye in the past. She will be pretreated with Solu-Cortef and Benadryl. CTA of chest ordered.
*Critical Care Note
Total Time (30-74mins, 75-104mins- exclusive of procedures): Not Applicable
Update Note
Update Note:
CT angio of the chest negative for acute finding including dissection or active bleeding. Patient reassured. Suspect either underlying radiculopathy or shoulder strain. She cannot do NSAIDs. Will prescribe Lidoderm patch and prednisone. Will
advise follow-up with orthopedics
ED Attending Note
-
Portions of this chart may have been created with voice recognition software.� Occasional wrong word or��sound alike� substitutions may have occurred due to the inherent limitations of voice recognition software.
Discharge Plan
Departure
Patient Disposition: Home (Routine Discharge)
Date of Disposition: 08/05/24
Time of Disposition: 11:40
Patient with high blood pressure during this ER visit?: No
Discharge Problem:
Left shoulder strain
Instructions: Muscle and Bone Pain (DC)
Prescriptions:
New
lidocaine [Lidoderm] 5 % adhesive patch,medicated
1 patch topical DAILY Qty: 15 0RF
prednisone 20 mg tablet
40 mg PO DAILY 5 Days Qty: 10 0RF
No Action
Vitamin D
1 tab PO DAILY
levothyroxine [Levoxyl] 50 MCG tablet
50 mcg PO DAILY
epinephrine [EpiPen] 0.3 mg/0.3 mL auto-injector
0.3 mg IM .STAT PRN (Reason: anaphylaxis) Qty: 1 0RF
diltiazem HCl 180 mg Capsule,Extended Release 24hr
180 mg PO DAILY Qty: 30 11RF
Eliquis 2.5 mg Tablet
2.5 mg PO BID Qty: 60 11RF
Referrals:
Josh Gutierrez MD [Family Provider] -
Jacob Adidson MD [Active] -
Activity Restrictions/Additional Instructions:
Use Lidoderm patch as directed. Use prednisone as directed. Return here for worsening symptoms otherwise follow-up with orthopedics
Interventions
Interventions:
*Risk Screen - Suicide Last Done: 08/05/24 07:53
*Neglect/Abuse Screening Last Done: 08/05/24 07:53
ED-Musculoskeletal Assessment Last Done: 08/05/24 09:38
Discharge Date and Time
Print Language: BRAZILIAN
[2024-08-05 08:58] LABS: % Basophils 0.4 % (0-2); % Eosinophils 0.2 % (0-6); % Immature Granulocytes 0.4 % (0-0.5); % Lymphocytes 8.6 % (20.5-51.1); % Monocytes 9.9 % (1.7-9.3); % Neutrophils 80.5 % (42.2-75.2); Absolute Basophils 0.1 10^3/uL (0-0.2); Absolute Immature Granulocytes 0.1 10^3/uL (0-0.05); Absolute Lymphocytes 1.2 10^3/uL (1.2-3.4); Absolute Monocytes 1.4 10^3/uL (0.1-0.6); Absolute Neutrophils 11.4 10^3/uL (1.4-6.5); Hematocrit 36.2 % (37.0-47.0); Hemoglobin 12.5 g/dL (12.0-16.0); Mean Corp Hgb Conc. 34.5 g/dL (33.0-37.0); Mean Corpuscular Hgb 31.9 pg (27.0-31.0); Mean Corpuscular Volume 92.3 fL (81.0-99.0); Mean Platelet Volume 11.2 fL (7.4-10.4); Nucleated Red Blood Cells % 0 %; Platelet Count 262 10^3/uL (130-400); Red Blood Cell Count 3.92 10^6/uL (4.20-5.40); Red Cell Dist. Width 11.7 % (11.5-14.5); White Blood Cell Count 14.1 10^3/uL (4.8-10.8)
[2024-08-05 09:11] VITALS: BMI 22.0
[2024-08-05] MEDS: SOLU-CORTEF 200 MG IV (09:12)
[2024-08-05] MEDS: BENADRYL 50 MG IV (09:13)
[2024-08-05 09:14] LABS: ALT (SGPT) 14 U/L (0-35); AST (SGOT) 25 U/L (14-36); Alkaline Phosphatase 55 U/L (38-126); Blood Urea Nitrogen 21 mg/dl (7-17); Calcium 8.7 mg/dl (8.4-10.2); Carbon Dioxide 26 mmol/L (22-30); Chloride 102 mmol/L (98-107); Estimated Creatinine Clearance 44 ml/min; Glucose 116 mg/dl (70-99); Potassium 3.7 mmol/L (3.5-5.1); Sodium 138 mmol/L (135-145); Total Bilirubin 1.3 mg/dl (0.2-1.3); Total Protein 6.3 g/dl (6.3-8.2); eGFR > 60.00
[2024-08-05 09:22] VITALS: BP 152/76
[2024-08-05 10:00] VITALS: BP 134/65
[2024-08-05 11:24] VITALS: BP 117/62
[2024-08-05 12:00] VITALS: BP 117/62
== END 2024-08-05 12:02 | disposition home or self-care (01) ==
LOC: EMR 07:37
PROVIDERS: Physician Assistant; EMERGENCY PHYSICIAN Emergency Medicine; FAMILY PHYSICIAN Family Medicine
DX: S46.912A Strain of unspecified muscle, fascia and tendon at shoulder and upper arm level, left arm, initial encounter (principal); X58.XXXA Exposure to other specified factors, initial encounter; I48.91 Unspecified atrial fibrillation; E03.9 Hypothyroidism, unspecified; Z79.01 Long term (current) use of anticoagulants; Z82.49 Family history of ischemic heart disease and other diseases of the circulatory system; Z90.710 Acquired absence of both cervix and uterus
CPT/HCPCS: 99284; 96374; 96375; 71275; 80053; 85025; 93005; Q9967

== ENCOUNTER → 2024-08-11 16:11 | Outpatient (REF) | payer MEDICARE, SELFPAY | LOC: HWRCS 16:11 | PROVIDERS: ATTENDING PHYSICIAN Internal Medicine Cardiovascular Disease; FAMILY PHYSICIAN Family Medicine | DX: I48.0 Paroxysmal atrial fibrillation (principal); I10 Essential (primary) hypertension | CPT/HCPCS: 93306 ==